=== PATIENT | female | born 1960 | race Hispanic/Latino ===

== ENCOUNTER 2023-06-23 16:00 | Observation (INO) | payer OTHER ==
[~2023-06-23] VITALS: Ht 162.6 cm; Wt 111.5 kg
[2023-06-23 13:47] LABS: BASOPHILS # (AUTO) 0.03 K/uL (0.00-0.20); BASOPHILS % (AUTO) 0.4 % (0.0-5.0); EOSINOPHILS # (AUTO) 0.12 K/uL (0.00-0.70); EOSINOPHILS % (AUTO) 1.7 % (0.0-8.0); HEMATOCRIT 40.8 % (36-48); IMMATURE GRANULOCYTE ABSOLUTE 0.02 K/uL (0-1); LYMPHOCYTES % (AUTO) 28.2 % (21.0-51.0); MEAN CORPUSCULAR HEMOGLOBIN 30.4 pg (27.0-33.0); MEAN CORPUSCULAR HGB CONC 33.3 g/dL (32.0-36.0); MEAN CORPUSCULAR VOLUME 91.3 fL (79-99); MONOCYTES # (AUTO) 0.4 K/uL (0.1-1.0); MONOCYTES % (AUTO) 5.2 % (3.0-13.0); NEUTROPHILS # (AUTO) 4.6 K/uL (1.8-7.7); NEUTROPHILS % (AUTO) 64.2 % (40.0-77.0); PLATELET COUNT (AUTO) 178 K/uL (130-400); RED BLOOD CELL COUNT(AUTO) 4.47 MIL/uL (4.00-5.50); RED CELL DISTRIBUTION WIDTH 12.3 % (11.0-15.5); WHITE BLOOD COUNT (AUTO) 7.1 K/uL (4.8-10.8)
[2023-06-23 13:58] LABS: CREATININE 0.7 mg/dL (0.5-1.5); POTASSIUM 3.8 mmol/L (3.5-5.1)
[2023-06-23 14:11] VITALS: BP 140/80; PULSE 62; RESP 17
[~2023-06-23 16:00] MED LIST: OLME20TA68 PO; VITA-337 PO; b12 complex PO
[2023-06-25] VITALS (25 sets, daily range): BP systolic 106–144; BP diastolic 50–82; PULSE 74–97; RESP 13–17; O2SAT 100
[2023-06-25] MEDS ORDERED: CEFAZOLIN SODIUM 2 GM VIAL ONE (06:23)
[2023-06-25] MEDS ORDERED: LACTATED RINGERS 1000ML 1,000 ML IV ONE (06:24)
[2023-06-25] MEDS ORDERED: CEFAZOLIN SODIUM 1 GM VIAL ONE (06:41)
[2023-06-25] MEDS ORDERED: THROMBIN-JMI 20000 UNIT KIT TP ONE ×2 (06:42→08:22)
[2023-06-25] MEDS ORDERED: SUCCINYLCHOLINE CHLORIDE 20 MG/ML 10 ML VIAL ONE (06:50)
[2023-06-25] MEDS ORDERED: LIDOCAINE PF 100MG/5ML (2%) SYRINGE 5ML ONE (06:50)
[2023-06-25] MEDS ORDERED: DEXAMETHASONE SOD PHOSPHATE 10MG/ML 1ML VIAL ONE ×2 (06:50→06:53)
[2023-06-25] MEDS ORDERED: PROPOFOL 10 MG/ML 20ML VIAL IV ONE ×2 (06:50→09:38)
[2023-06-25] MEDS ORDERED: GLYCOPYRROLATE 1 MG/5 ML SYRINGE ONE (06:51)
[2023-06-25] MEDS ORDERED: MIDAZOLAM HCL 1 MG/ML 2ML VIAL ONE (06:51)
[2023-06-25] MEDS ORDERED: ROCURONIUM 10MG/1ML SYR 10 MG/ML ML ONE ×2 (06:52→08:17)
[2023-06-25] MEDS ORDERED: ONDANSETRON 4MG INJ ONE ×2 (06:52→06:53)
[2023-06-25] MEDS ORDERED: FENTANYL CITRATE PF 50 MCG/1 ML 2ML VIAL ONE ×4 (06:52→09:43)
[2023-06-25] MEDS ORDERED: NEOSTIGMINE 5MG/5ML SYR IV ONE (06:52)
[2023-06-25] MEDS ORDERED: LIDOCAINE HCL 2% JELLY 5 ML ONE (07:12)
[2023-06-25] MEDS ORDERED: PYRI100L2 PO (07:25)
[2023-06-25] MEDS ORDERED: FISH OIL PO (07:25)
[2023-06-25] MEDS ORDERED: IBUP-2784 PO (07:25)
[2023-06-25] MEDS ORDERED: ZINC50TA64 PO (07:25)
[2023-06-25] MEDS ORDERED: BIOT50004 PO (07:25)
[2023-06-25] MEDS ORDERED: VITA-300 PO (07:25)
[2023-06-25] MEDS ORDERED: MAGN100T PO (07:25)
[2023-06-25] MEDS ORDERED: LIDOCAINE 2%-EPI PF 30 ML+BUPIVACAINE/PF 0.25% 30ML /60ML SYR IJ SCH ×2 (07:30)
[2023-06-25] MEDS ORDERED: CEFAZOLIN SODIUM 2 GM VIAL IVPB ONE (07:49)
[2023-06-25] MEDS ORDERED: MORPHINE 10MG VIAL IM ONE (08:22)
[2023-06-25] MEDS ORDERED: CEFAZOLIN SODIUM 1 GM VIAL IRRIG ONE (08:22)
[2023-06-25] MEDS ORDERED: ATROPINE 1MG SYG IVP ONE (10:07)
[2023-06-25] MEDS: DEXAMETHASONE SOD PHOSPHATE 4 MG/ML 1ML VIAL IVP SCH ×2 (11:00→16:23)
[2023-06-25] MEDS ORDERED: MORPHINE 2 MG SYG IVP PRN (11:00)
[2023-06-25] MEDS ORDERED: PROMETHAZINE HCL 25 MG/ML 1ML AMPULE IM PRN (11:00)
[2023-06-25] MEDS: LACTATED RINGERS 1000ML 1,000 ML IV SCH (11:00)
[2023-06-25] MEDS ORDERED: 0.9%NACL 10ML VIAL IVP PRN (11:00)
[2023-06-25] MEDS: HYDROCODONE/ACETAMINOPHEN 5/325 MG TAB PO PRN ×3 (13:18→21:20)
[2023-06-25] MEDS: CEFAZOLIN SODIUM 2 GM VIAL IVPB SCH (16:23)
[2023-06-26] VITALS: BP 110/70; PULSE 75; RESP 18
[2023-06-26] MEDS: LACTATED RINGERS 1000ML 1,000 ML IV SCH
[2023-06-26] MEDS: DEXAMETHASONE SOD PHOSPHATE 4 MG/ML 1ML VIAL IVP SCH (01:00)
[2023-06-26] MEDS: HYDROCODONE/ACETAMINOPHEN 5/325 MG TAB PO PRN (01:01)
[2023-06-26] MEDS: CEFAZOLIN SODIUM 2 GM VIAL IVPB SCH (03:25)
[2023-06-26 03:56] VITALS: BP 117/56; PULSE 72; RESP 18
[2023-06-26 04:21] VITALS: O2SAT 94
[2023-06-26 08:00] VITALS: BP 105/65; PULSE 65; RESP 16; O2SAT 94
[2023-06-26] MEDS ORDERED: PYRIDOXINE HCL 100 MG PO SCH (09:00)
[2023-06-26] MEDS ORDERED: B12 COMPLEX PO SCH (09:00)
[2023-06-26] MEDS ORDERED: VITAMIN K2 PO SCH (09:00)
[2023-06-26] MEDS ORDERED: FISH OIL PO SCH (09:00)
[2023-06-26] MEDS ORDERED: (Olmesartan Medoxomil 20 MG) PO SCH (09:00)
[2023-06-26] MEDS ORDERED: MAGNESIUM GLYCINATE 400 MG PO SCH (09:00)
[2023-06-26] MEDS ORDERED: VITAMIN D3 PO SCH (09:00)
[2023-06-26] MEDS ORDERED: VITAMIN A PALMITATE PO SCH (09:00)
[2023-06-26] MEDS ORDERED: (Biotin 5,000 MCG) PO SCH (09:00)
[2023-06-26] MEDS ORDERED: (Zinc Amino Acid Chelate (Zinc) 50 MG) PO SCH (09:00)
[2023-06-26 11:00] VITALS: BP 125/79; PULSE 67; RESP 18
== END 2023-06-26 14:00 | disposition home or self-care (01) ==
LOC: DAHIP 06-25 05:43 → 3BH 06-25 11:45
PROVIDERS: ADMIT Neurological Surgery; ATTEND Neurological Surgery
DX: M50.121 Cervical disc disorder at C4-C5 level with radiculopathy (principal); E66.3 Overweight; M25.78 Osteophyte, vertebrae; Z98.1 Arthrodesis status; Z68.41 Body mass index [BMI] 40.0-44.9, adult
CPT/HCPCS: 80048; 85025; 36415; 71045; 93005; 96365; 96375; 72020; 22551; 96376; 96366; A6260; G0378 ×26; G0379; A4510; A4663; A4344; J7120; J3010 ×4; J0690 ×6; J3490 ×2; J1100 ×5; J2710; J0330; J0665; J2001; J0461; J2250; J2704 ×2; J2405 ×2; J2270; A4649; C1713; C1889; A4930; A4215; A4223; A4222; A4221; A4600; J2550

== ENCOUNTER → 2023-07-24 | Outpatient (CLI) | payer OTHER ==
[~2023-07-24] MED LIST changes: +BIOT50004 PO; +FISH OIL PO; +IBUP-2784 PO; +MAGN100T PO; +PYRI100L2 PO; +VITA-300 PO; +ZINC50TA64 PO
== END | disposition home or self-care (01) ==
LOC: RAH 08:10
PROVIDERS: ATTEND Neurological Surgery
DX: M43.22 Fusion of spine, cervical region (principal)
CPT/HCPCS: 72040